=== PATIENT | female | born 2000 | race Caucasian/White ===

== ENCOUNTER 2020-03-29 05:27 | Emergency (ER) | payer BC ==
[~2020-03-29] VITALS: Ht 165.1 cm; Wt 79.5 kg
[2020-03-29 05:34] VITALS: Ht 165.1 cm; Wt 79.5 kg
[2020-03-29] MEDS ORDERED: KLONOPIN0.5 MG PO (05:35)
[2020-03-29] MEDS ORDERED: LINZESS145 MCG PO (05:35)
[2020-03-29] MEDS ORDERED: BUTALB-APAP-CA1 EACH PO (05:36)
[2020-03-29] MEDS ORDERED: FAMOTIDINE10 MG PO (05:37)
[2020-03-29] MEDS ORDERED: CARAFATE1 G PO (05:37)
[2020-03-29] MEDS ORDERED: ZOFRAN ODT4 MG/UDTAB (05:37)
[2020-03-29 06:02] LABS: BASOPHILS 0.2 % (0-2); EOSINOPHILS 1.2 % (0-7); HEMATOCRIT 35.2 % (36.0-48.0); HEMOGLOBIN 11.8 g/dL (12-16); IMMATURE GRANULOCYTES 0.2 % (0-5); LYMPHOCYTES 35.6 % (15-50); MCH 29.5 pg (26.0-34.0); MCHC 33.5 g/dL (31.0-37.0); MEAN PLATELET VOLUME 10.5 fL (7.4-10.4); MONOCYTES 7.9 % (2-11); NEUTROPHILS 54.9 % (40-80); PLATELET COUNT 260 10x3/uL (130-400); RDW 13.1 % (11.5-14.5); WBC 9.6 10x3/uL (4.8-10.8)
[2020-03-29 06:39] LABS: HCG URINE NEGATIVE (NEGATIVE)
[2020-03-29 06:40] LABS: CALC OSMOLALITY 276 mosm/kg (275-300); CALCIUM 8.6 mg/dL (8.5-10.1); CARBON DIOXIDE 24.4 mmol/L (21.0-32.0); CHLORIDE - SERUM 104 mmol/L (98-107); CREATININE - SERUM 0.9 mg/dL (0.6-1.3); GLUCOSE 104 mg/dL (74-106); POTASSIUM - SERUM 3.4 mmol/L (3.5-5.1); SODIUM 138 mmol/L (136-145); UREA NITROGEN 14 mg/dL (7-18); eGFR NON AFRICAN AMERICAN 85 mL/min (90-120)
[2020-03-29 06:44] LABS: ALBUMIN 3.5 g/dL (3.4-5.0); ALKALINE PHOSPHATASE 48 U/L (30-120); ALT (SGPT) 21 U/L (10-68); AMYLASE - SERUM 65 U/L (25-115); BILIRUBIN - TOTAL 0.24 mg/dL (0.2-1.3); LIPASE 98 U/L (73-393); PROTEIN - SERUM 6.8 g/dL (6.4-8.2)
[2020-03-29 06:45] LABS: BILIRUBIN NEGATIVE (NEGATIVE); GLUCOSE NEGATIVE (NEGATIVE); KETONE NEGATIVE (NEGATIVE); NITRITE NEGATIVE (NEGATIVE); UROBILINOGEN NORMAL (NORMAL)
[2020-03-29 06:46] LABS: TROPONIN-I < 0.017 ng/mL (0.000-0.060)
[2020-03-29 06:47] LABS: BACTERIA MANY /hpf (NEGATIVE); EPITHELIAL CELLS 0-5 /hpf (0-5); RED CELLS - URINE 0-5 /hpf (0-5); WHITE CELLS - URINE 0-5 /hpf (NEGATIVE)
[2020-03-29] MEDS ORDERED: HYDROCODON-ACE1 EAC7 PO (09:55)
[2020-03-29 09:58] LABS: HCG SERUM NEGATIVE (NEGATIVE)
[2020-03-29 10:11] VITALS: BP 122/72
== END 2020-03-29 10:12 | disposition home or self-care (01) ==
LOC: D.ER 05:27
PROVIDERS: Emergency Medicine; Family Medicine
DX: R10.30 Lower abdominal pain, unspecified (principal); M54.5 Low back pain